=== PATIENT | female | born 1950 | race Two or more races ===

== ENCOUNTER 2020-05-13 21:45 | Observation (INO) | payer MEDICARE ==
[~2020-05-13] VITALS: Ht 157.5 cm; Wt 117.4 kg
[~2020-05-13 21:45] MED LIST: ALBU90OI INH; BP MED; FLUO10 PO; HTN MED; LOSHYD100 PO; MONT10T PO
[2020-05-13 22:55] LABS: BASOPHILS ABSOLUTE AUTO 0.04 K/mm3 (0.00-0.23); BASOPHILS PERCENT AUTO 0 % (0-2); EOSINOPHILS ABSOLUTE AUTO 0.14 K/mm3 (0.00-0.68); EOSINOPHILS PERCENT AUTO 2 % (0-6); Hematocrit 44.3 % (33.0-51.0); Hemoglobin 14.9 g/dL (11.5-16.0); IMMATURE GRAN ABSOLUTE AUTO 0.03 K/mm3 (0.00-0.10); IMMATURE GRAN PERCENT AUTO 0 % (0-1); LYMPHOCYTES ABSOLUTE AUTO 2.38 K/mm3 (0.84-5.20); LYMPHOCYTES PERCENT AUTO 26 % (21-46); MONOCYTES ABSOLUTE AUTO 0.67 K/mm3 (0.16-1.47); MONOCYTES PERCENT AUTO 7 % (4-13); Mean Corpuscular HGB 31.5 pg (26.0-34.0); Mean Corpuscular HGB Conc 33.6 g/dL (31.5-36.5); Mean Corpuscular Volume 94 fL (80-100); Mean Platelet Volume 10.6 fL (9.1-12.4); NEUTROPHILS ABSOLUTE AUTO 6.08 K/mm3 (1.96-9.15); NEUTROPHILS PERCENT AUTO 65 % (41-73); Platelet Count 220 K/mm3 (150-400); RDW Coefficient Variation 13.2 % (11.7-14.2); Red Blood Cell Count 4.73 M/mm3 (3.80-5.20); White Blood Cell Count 9.34 K/mm3 (4.00-11.30)
[2020-05-13 23:17] LABS: Alanine Aminotransfer (ALT/SGP 44 U/L (12-78); Albumin, Blood 3.9 g/dL (3.4-5.0); Alk Phos 65 U/L (50-136); Anion Gap 6 mmol/L (6-16); Aspartate Aminotrans (AST/SGOT 38 U/L (12-37); Bilirubin, Total 0.4 mg/dL (0.1-1.0); Blood Urea Nitrogen 18 mg/dL (8-24); Bun/Creatinine Ratio 19.7 (12.0-20.0); CO2, Blood 30 mmol/L (21-32); Calcium, Blood 9.6 mg/dL (8.5-10.1); Chloride, Blood 104 mmol/L (98-108); Creatinine, Blood 0.91 mg/dL (0.40-1.00); Glomerular Filtration Rate >60 (60-); Glucose, Blood 119 mg/dL (70-99); Potassium, Blood 3.7 mmol/L (3.5-5.5); Sodium, Blood 140 mmol/L (136-145); Total Protein, Blood 7.9 g/dL (6.4-8.2)
[2020-05-14 03:13] LABS: Source, Urine Clean Catch
[2020-05-14 03:17] LABS: Appearance, Urine Clear (Clear); Bilirubin, Urine Neg (Neg); Blood, Urine 1+ (Neg); Color, Urine Yellow (P-Yellow); Glucose Qualitative, Urine Neg (Neg); Ketones, Urine Neg (Neg); Leukocyte Esterase, Urine Neg (Neg); Nitrite, Urine Neg (Neg); Protein, Urine Neg (Neg); Urobilinogen, Urine NORM (Normal); pH, Urine 6.5 (5.0-8.0)
[2020-05-14] MEDS ORDERED: Prozac20 MG PO (03:23)
[2020-05-14 03:25] LABS: Bacteria Few /hpf; Red Blood Cells, Urine 0-2 /hpf (0-2); Squamous Epithelial Cells Not Seen /hpf (Few); White Blood Cells, Urine 0-2 /hpf (0-5)
[2020-05-14] MEDS ORDERED: PRAV20 PO (03:27)
[2020-05-14] MEDS ORDERED: MONT10T PO (03:27)
[2020-05-14 04:40] LABS: Magnesium, Blood 2.2 mg/dL (1.6-2.4)
[2020-05-14] MEDS ORDERED: K-Dur 20 meq T20 MEQ PO (06:36)
--- NOTE | 2020-05-14 06:50 | NUR ---
ASSUMED CARE NOTE: ASSUMED CARE OF PT AT 0615, RECEVIED REPORT FROM ARTURO DUNCAN. PT ARRIVED TO UNTIL VIA STRETCHER. PT ALERT AND ORIENTEDX4, ABLE TO COMMUNICATE NEEDS. PT IS ON 2L OF O2 VIA NC, WITH SPO2 OF 92% PT IN SINUS RHYTHM WITH PVC'S HR IN THE 60'S. PT DENIES ANY PAIN AT THIS TIME. PT ADVISED TO BRING IN HOME MEDICATION LIST FOR VERIFICATION. PT RESTING IN BED, CALL LIGHT WITHIN REACH. WILL CONTINUE TO MONITOR UNTIL REPORT IS GIVEN TO ONCOMING SHIFT.
--- NOTE | 2020-05-14 10:24 | NUR ---
PT RESTING IN BED. BP HAS IMPROVED THIS AM. DENIES PAIN, N/V, AND SOB. ORDERS TO TRANSFER TO MEDICAL FLOOR. REPORT GIVEN TO NAVDEEP DUNCAN. PT IS BEING TAKEN TO ROOM 350 VIA W/C ACCOMPANIED BY INDUSTRIAL HYGIENE TECHNICIAN. NO SIGN OF DISTRESS.
--- NOTE | 2020-05-14 10:45 | NUR ---
PT ARRIVED TO ROOM AT 1035 VIA WHEEL CHAIR. PT IS AOX4 AND DENIES ANY PAIN OR SOB AT THIS TIME. PT INDEPENDENT IN ROOM AND CAN CALL APPROPRIATELY. WILL CONTINUE TO MONITOR.
[2020-05-14] MEDS ORDERED: FAMO20 PO (18:06)
[2020-05-14] MEDS ORDERED: METO25 PO (18:07)
[2020-05-14] MEDS ORDERED: NAPR500 PO (18:08)
--- NOTE | 2020-05-14 18:21 | NUR ---
PT HAD ALL PAPERWORK REVIEWED AND EDUCATIONAL WORK SENT WITH HER. PT STILL HAS MILD R FLANK PAIN, BUT DID NOT WANT PAIN MED. PT HAS BEEN DOING WELL AND INDEPENEDENT IN ROOM. NO DISTRESS NOTED AND CALLS APPROPRIATELY. PT IS WAITING FOR HER RIDE TO GET HERE. WILL CONTINUE TO MONITOR.
== END 2020-05-14 18:46 | disposition home or self-care (01) ==
LOC: ER 21:45 → ICUE 21:46 → ICUW 21:46 → MEDS 05-14 06:17 → ICUE 05-14 06:19 → MEDS 05-14 10:30
PROVIDERS: Emergency Medicine; ADMIT Family Medicine
DX: I16.0 Hypertensive urgency (principal); R07.9 Chest pain, unspecified; R10.11 Right upper quadrant pain; I10 Essential (primary) hypertension; F32.9 Major depressive disorder, single episode, unspecified; E66.01 Morbid (severe) obesity due to excess calories; J45.909 Unspecified asthma, uncomplicated; I71.4 Abdominal aortic aneurysm, without rupture; G47.33 Obstructive sleep apnea (adult) (pediatric); E78.5 Hyperlipidemia, unspecified; Z99.89 Dependence on other enabling machines and devices; Z88.0 Allergy status to penicillin; Z79.899 Other long term (current) drug therapy; Z87.891 Personal history of nicotine dependence; Z68.41 Body mass index [BMI] 40.0-44.9, adult; R16.0 Hepatomegaly, not elsewhere classified
CPT/HCPCS: 36415; 71275; 74175; 74176; 80053; 81001; 83690; 83735; 84439; 84443; 84481; 84484; 85025; 93005; 93010; 93306; 93975; 96374; 96375; 96376; 99285-25; A9270-GY; G0378; J1170; J2405; Q9967

== ENCOUNTER 2022-12-08 13:22 | Day surgery (SDC) | payer MEDICARE ==
[~2022-12-08] VITALS: Ht 157.5 cm; Wt 111.3 kg
[~2022-12-08 13:22] MED LIST changes: +FAMO20 PO; +K-Dur 20 meq T20 MEQ PO; +METO25 PO; +NAPR500 PO; +PRAV20 PO; +Prozac20 MG PO
[2022-12-08] MEDS ORDERED: ATOR10 (13:46)
[2022-12-08] MEDS ORDERED: FUROSEMIDE40 MG/4 M1 (13:46)
[2022-12-08] MEDS ORDERED: ASTAXANTHIN4 MG (13:47)
[2022-12-08 15:48] VITALS: BP 110/76
== END 2022-12-08 15:52 | disposition home or self-care (01) ==
LOC: ORSCSDS 13:22
PROVIDERS: Internal Medicine Gastroenterology
PROC: 0DBK8ZX Excision of Ascending Colon, Via Natural or Artificial Opening Endoscopic, Diagnostic (ICD-10-PCS; principal; 2022-12-08 14:30)
PROC: 0DBN8ZX Excision of Sigmoid Colon, Via Natural or Artificial Opening Endoscopic, Diagnostic (ICD-10-PCS; principal; 2022-12-08 14:30)
DX: Z12.11 Encounter for screening for malignant neoplasm of colon (principal); Z86.010 Personal history of colon polyps; D12.2 Benign neoplasm of ascending colon; D12.5 Benign neoplasm of sigmoid colon; K57.30 Diverticulosis of large intestine without perforation or abscess without bleeding; G47.33 Obstructive sleep apnea (adult) (pediatric); E66.01 Morbid (severe) obesity due to excess calories; Z68.42 Body mass index [BMI] 45.0-49.9, adult; K64.8 Other hemorrhoids; I10 Essential (primary) hypertension; Z87.891 Personal history of nicotine dependence; Z79.899 Other long term (current) drug therapy
CPT/HCPCS: 82947; 88305; J2704; J7120

== ENCOUNTER → 2023-04-19 | Outpatient (CLI) | payer MEDICARE ==
[~2023-04-19] MED LIST changes: +ASTAXANTHIN4 MG; +ATOR10; +FUROSEMIDE40 MG/4 M1
[2023-04-19 17:39] LABS: BASOPHILS ABSOLUTE AUTO 0.05 K/mm3 (0.00-0.23); BASOPHILS PERCENT AUTO 1 % (0-2); EOSINOPHILS ABSOLUTE AUTO 0.17 K/mm3 (0.00-0.68); EOSINOPHILS PERCENT AUTO 2 % (0-6); Hematocrit 41.2 % (33.0-51.0); Hemoglobin 14.2 g/dL (11.5-16.0); IMMATURE GRAN ABSOLUTE AUTO 0.02 K/mm3 (0.00-0.10); IMMATURE GRAN PERCENT AUTO 0 % (0-1); LYMPHOCYTES ABSOLUTE AUTO 2.51 K/mm3 (0.84-5.20); LYMPHOCYTES PERCENT AUTO 36 % (21-46); MONOCYTES ABSOLUTE AUTO 0.51 K/mm3 (0.16-1.47); MONOCYTES PERCENT AUTO 7 % (4-13); Mean Corpuscular HGB 31.8 pg (26.0-34.0); Mean Corpuscular HGB Conc 34.5 g/dL (31.5-36.5); Mean Corpuscular Volume 92 fL (80-100); NEUTROPHILS ABSOLUTE AUTO 3.78 K/mm3 (1.96-9.15); NEUTROPHILS PERCENT AUTO 54 % (41-73); Platelet Count 207 K/mm3 (150-400); RDW Coefficient Variation 13.1 % (11.7-14.2); RDW Standard Deviation 44.2 fL (35.1-46.3); Red Blood Cell Count 4.47 M/mm3 (3.80-5.20); White Blood Cell Count 7.04 K/mm3 (4.00-11.30)
[2023-04-20 15:14] LABS: Alanine Aminotransfer (ALT/SGP 42 U/L (12-78); Albumin, Blood 3.6 g/dL (3.4-5.0); Alk Phos 58 U/L (50-136); Anion Gap 2 mmol/L (6-16); Aspartate Aminotrans (AST/SGOT 36 U/L (12-37); Bilirubin, Total 0.5 mg/dL (0.1-1.0); Blood Urea Nitrogen 18 mg/dL (8-24); Bun/Creatinine Ratio 24.1 (12.0-20.0); CHOL/HDL RATIO 3.5; CO2, Blood 32 mmol/L (21-32); Chloride, Blood 105 mmol/L (98-108); Cholesterol 163 mg/dL (50-200); Creatinine, Blood 0.75 mg/dL (0.40-1.00); Globulin, Blood 3.6 g/dL (2.2-4.0); Glomerular Filtration Rate 84 (60-); Glucose, Blood 106 mg/dL (70-99); HDL Cholesterol 47 mg/dL (>39); LDL/HDL RATIO 1.6; Low Density Lipoprotein Chol 75 mg/dL (0-110); Potassium, Blood 3.8 mmol/L (3.5-5.5); Sodium, Blood 139 mmol/L (136-145); Total Protein, Blood 7.2 g/dL (6.4-8.2); Triglycerides 206 mg/dL (30-160); Very Low Density Lipoprot Chol 41 mg/dL (6-32)
== END | disposition home or self-care (01) ==
LOC: LAB SHORT 17:10 → LAB 17:10
PROVIDERS: Family Medicine
DX: E11.9 Type 2 diabetes mellitus without complications (principal); I10 Essential (primary) hypertension
CPT/HCPCS: 80053; 80061; 83036; 85025